=== PATIENT | male | born 2000 | race Two or more races ===

== ENCOUNTER 2019-07-10 13:59 | Emergency (ER) | payer MEDICAID, OTHER ==
[~2019-07-10] VITALS: Ht 165.1 cm; Wt 79.4 kg
[2019-07-10 14:05] VITALS: BP 130/78
== END 2019-07-10 14:31 | disposition home or self-care (01) ==
LOC: ER 14:00
DX: A05.9 Bacterial foodborne intoxication, unspecified (principal); Z98.890 Other specified postprocedural states